=== PATIENT | male | born 1990 | race Caucasian/White ===

== ENCOUNTER 2021-06-21 10:16 | Emergency (ER) | payer OTHER, SELFPAY ==
[2021-06-21 10:28] VITALS: BP 126/84; PULSE 69; RESP 18; TEMP 36.5; O2SAT 100
[2021-06-21 10:29] VITALS: BP 126/84; PULSE 69; RESP 18; TEMP 36.5; O2SAT 100
--- NOTE | 2021-06-21 10:40 | ED_ITS ---
HPI - URI/Sore Throat General Chief Complaint: Upper Respiratory Infection Stated Complaint: Sinus History of Present Illness HPI Narrative: This is a 30 year old that was diagnosed with COVID May he started feeling better 7 days ago. Approximately 5 days ago he started to have coughing copious drainage and brownish sputum in the morning. Patient states that he has a headache periodically and when he take a deep breath he goes into coughing spell he is taking Zandra daily but not for sure what else he can do Related Data Allergies Allergy/AdvReac Type Severity Reaction Status Date / Time No Known Allergies Allergy Verified 06/21/21 10:29 Review of Systems Review of Systems: Cough, headache, Ear pressure, drainage nasal All systems reviewed & are unremarkable except as noted in HPI and below PMFSH Comments At time as signature, I have reviewed and agree with nursing past medical, social, surgical and family history. Please see nursing chart for further information. There is no relevant family history pertinent to the presenting complaint. Exam Narrative: GENERAL:Well-appearing, well-nourished, and in no acute distress. HEAD:Normocephalic EYES: PERRLA. ENT: Nares clear, moderate rhinorrhea erythema boggy turbinates. Mucous membranes moist. TM bilaterally bulging with clear fluid noted CHEST: Clear to auscultation. No respiratory distress. HEART: Regular rate and rhythm. EXTREMITIES: Normal range of motion. No edema. SKIN: Warm, dry, no rash. NEURO: No focal deficits. Alert and oriented x3. Course Course Level of Care: Express Care Visit Vital Signs Vital signs: Vital Signs Temperature 97.7 F 06/21/21 10:28 Pulse Rate 69 06/21/21 10:28 Respiratory Rate 18 06/21/21 10:28 Blood Pressure 126/84 06/21/21 10:28 Pulse Oximetry 100 06/21/21 10:28 Temperature 97.7 F 06/21/21 10:29 Pulse Rate 69 06/21/21 10:29 Respiratory Rate 18 06/21/21 10:29 Blood Pressure 126/84 06/21/21 10:29 Pulse Oximetry 100 06/21/21 10:29 MDM - URI/Sore Throat Differential Diagnosis Differential diagnosis: Likely upper respiratory infection, croup, otitis media, sinusitis, viral infection, bronchitis, influenza and pharyngitis Discharge Plan Discharge Clinical Impression: Bronchitis Patient Disposition: Home, Self-Care Condition: Stable Instructions: Antibiotic Form, Acute Bronchitis (ED), Chronic Bronchitis (DC), Allergies (ED) Prescriptions: New methylprednisolone [Medrol (Sriram)] 4 mg tablets,dose pack See Rx Instructions .ROUTE .COMPLEX Qty: 21 RF: 0 benzonatate 200 mg capsule 200 mg PO TID PRN (Reason: cough) Qty: 30 RF: 0 azithromycin [Zithromax Z-Sriram] 250 mg tablet See Rx Instructions .ROUTE .COMPLEX Qty: 6 RF: 0 Follow-up/Referrals: [place], [Primary Care Provider] - Stand Alone Forms: Work/School Release IP Time of Disposition: 10:48
== END 2021-06-21 10:53 | disposition home or self-care (01) ==
PROVIDERS: Emergency Provider Nurse Practitioner Family
DX: J40 Bronchitis, not specified as acute or chronic (principal); Z86.16 Personal history of COVID-19
CPT/HCPCS: 99203; G0463

== ENCOUNTER 2024-05-02 10:48 | Emergency (ER) | payer OTHER, SELFPAY ==
[2024-05-02 10:57] VITALS: BP 125/81; PULSE 94; RESP 18; TEMP 37.3; O2SAT 97
--- NOTE | 2024-05-02 11:16 | ED_ITS ---
HPI - URI/Sore Throat General Chief Complaint: Upper Respiratory Infection Stated Complaint: cough / fever Time Seen by Provider: 05/02/24 11:10 Source: patient and RN notes reviewed Mode of arrival: ambulatory Limitations: no limitations History of Present Illness HPI Narrative: Patient presents today complaining of a dry cough that started yesterday with subjective fever, body aches, headache, mild sore throat, postnasal drainage. Denies shortness of breath or chest pain. He has tried some ibuprofen with relief. No history of asthma or COPD. He is a nonsmoker. Patient was exposed to a co-worker with influenza a last week. Related Data Allergies Allergy/AdvReac Type Severity Reaction Status Date / Time No Known Allergies Allergy Verified 05/02/24 11:04 Review of Systems Review of Systems: CONSTITUTIONAL: + subjective fever, body aches EYES: Denies visual changes, redness, or discharge. ENT: Denies rhinorrhea, congestion, or otalgia.+ sore throat, postnasal CARDIOVASCULAR: Denies chest pain, palpitations, or edema. RESPIRATORY: Denies dyspnea.+ cough GASTROINTESTINAL: Denies abdominal pain, nausea, vomiting, or diarrhea. GENITOURINARY: Denies dysuria or hematuria. SKIN: Denies rash, itching, or wounds. MUSCULOSKELETAL: Denies back pain, joint pain, or myalgia. NEUROLOGIC: Denies numbness, tingling, or weakness.+ headache PSYCH: Denies depression or anxiety. PMFSH Comments At time of signature, I have reviewed and agree with nursing past medical, surgical, social and family history unless otherwise noted. Please see nursing chart for further information. There is no relevant family history pertinent to the presenting complaint Exam Narrative: GENERAL: Mildly ill-appearing, well-nourished, and in no acute distress. HEAD: Normocephalic, atraumatic. EYES: EOMI. No redness or drainage. Conjunctivae normal. ENT: Mucous membranes pink and moist. Nares clear. No rhinorrhea. TMs normal bilaterally. Throat normal. Uvula midline. NECK: Normal AROM. Supple. No lymphadenopathy. CHEST: No respiratory distress. Clear to auscultation. Harsh frequent cough noted. HEART: Regular rate and rhythm. No murmur appreciated. EXTREMITIES: Normal range of motion. No edema. SKIN: Warm, dry, no rash. Capillary refill normal. Normal skin turgor. NEURO: No focal deficits. Alert and oriented x3. Gait steady. PSYCH: Normal affect. No signs of depression or anxiety. Course Course Level of Care: Express Care Visit Vital Signs Vital signs: Vital Signs Temperature 99.2 F 05/02/24 10:57 Pulse Rate 94 05/02/24 10:57 Respiratory Rate 18 05/02/24 10:57 Blood Pressure 125/81 05/02/24 10:57 Pulse Oximetry 97 05/02/24 10:57 Oxygen Delivery Room Air 05/02/24 10:57 Temperature 99.2 F 05/02/24 10:57 Pulse Rate 94 05/02/24 10:57 Respiratory Rate 18 05/02/24 10:57 Blood Pressure 125/81 05/02/24 10:57 Pulse Oximetry 97 05/02/24 10:57 Oxygen Delivery Room Air 05/02/24 10:57 Reviewed MDM - URI/Sore Throat MDM Narrative Medical decision making narrative: Due to patient's recent exposure to influenza at work and his symptoms, will treat for influenza with Tamiflu. Patient may have false negative testing. Discussed benefits and side effects of Tamiflu. Questions answered. ED precautions given. Differential Diagnosis Differential diagnosis: Likely upper respiratory infection, viral infection, influenza and other (COVID) Lab Data Attestation: I reviewed the patient's lab results. Labs: Lab Results 05/02/24 Range/Units 11:20 POC Influenza A Ag Negative (Negative) POC Influenza B Ag Negative (Negative) POC SARS CoV-2 Ag Negative (Negative) Critical Care Time Critical Care Time Critical Care Time: No Discharge Plan Discharge Clinical Impression: Flu-like symptoms Patient Disposition: Home, Self-Care Condition: Stable Instructions: Influenza (DC) Additional Instructions: Your COVID and influenza swabs are negative, however, due to your recent influenza exposure and current symptoms, you are being treated with Tamiflu. Please take as directed. As discussed, please go to the ER if symptoms worsen to include shortness of breath, difficulty swallowing, chest pain, fever greater than 100.3 the last for longer than 5 days, or any other concerning symptoms. Your blood pressure was elevated above 120/80 today at Urgent Care. This puts you above the threshold for follow up. Please schedule a followup visit with your personal physician as soon as possible, for further evaluation and treatment. Even blood pressure exceeding 120/80 may indicate pre-hypertension. Prescriptions: New oseltamivir [Tamiflu] 75 mg capsule 75 mg PO Q12H 5 Days Qty: 10 0RF Follow-up/Referrals: [facility] [place], [Primary Care Provider] - Stand Alone Forms: Work/School Release IP Time of Disposition: 11:30
[2024-05-02 11:22] LABS: EDCOVIDSCREEN Negative (Negative); EDINFLUASCREEN Negative (Negative); EDINFLUBSCREEN Negative (Negative)
== END 2024-05-02 11:39 | disposition home or self-care (01) ==
PROVIDERS: Emergency Provider Nurse Practitioner
DX: J11.1 Influenza due to unidentified influenza virus with other respiratory manifestations (principal); Z20.822 Contact with and (suspected) exposure to COVID-19
CPT/HCPCS: 87426; 87804; 99213; G0463